=== PATIENT | female | born 2000 | race Caucasian/White ===

== ENCOUNTER 2024-08-16 13:59 | Outpatient (CLI) | payer BC | END 2024-08-16 14:00 | disposition home or self-care (01) | LOC: SCSMRI 13:59 | DX: M25.572 Pain in left ankle and joints of left foot (principal); M72.2 Plantar fascial fibromatosis; M76.822 Posterior tibial tendinitis, left leg ==

== ENCOUNTER 2024-09-06 23:04 | Emergency (ER) | payer BC ==
[2024-09-07] MEDS ORDERED: Ipratropium/Albuterol 3 ML NEB ONE (00:03)
[2024-09-07] MEDS ORDERED: Albuterol 2.5 MG (3 mL) NEB ONE (00:03)
[2024-09-07] MEDS ORDERED: Albuterol 2.5 MG (0.5 mL) NEB ONE (00:03)
[2024-09-07] MEDS ORDERED: Dexamethasone 10 MG/ML VIAL ONE (00:37)
== END 2024-09-07 02:05 | disposition home or self-care (01) ==
LOC: ERS 23:04
DX: J45.901 Unspecified asthma with (acute) exacerbation (principal); R00.0 Tachycardia, unspecified
CPT/HCPCS: 71045; 93005; 94640; J1100; J7611; J7620

== ENCOUNTER 2024-11-28 01:58 | Emergency (ER) | payer BC, OTHER ==
[2024-11-28] MEDS ORDERED: Ipratropium/Albuterol 3 ML NEB ONE ×2 (02:06→02:12)
[2024-11-28] MEDS ORDERED: methylPREDNISolone Sod Succ/PF 125 MG/2 ML VIAL ONE (02:12)
[2024-11-28 02:23] LABS: #Basophils 0.03 10x3/uL (0.0-0.2); %Basophils 0.3 % (0.0-1.0); %Eosinophils 5.5 % (0.0-10.0); %Lymphocytes 32.3 % (21.0-51.0); %Monocytes 9.3 % (0.0-10.0); %Neutrophils 52.4 % (42.0-75.0); Hematocrit 38.6 % (36.0-47.0); Hemoglobin 12.8 g/dL (12.0-16.0); Mean Corpuscular HGB CONC 33.2 g/dL (32.0-36.0); Mean Corpuscular Hemoglobin 27.4 pg (27.0-31.0); Mean Corpuscular Volume 82.7 fL (78.0-98.0); Mean Platelet Volume 9.4 fL (7.4-10.4); Platelet Count 368 10x3/uL (130-400); RBC Distribution Width 14.3 % (11.5-14.5); Red Blood Cell (RBC) Count 4.67 mill/uL (4.20-5.40)
[2024-11-28 02:33] LABS: BHCG - Serum Negative (NEGATIVE); Pregs Control Background? CLEAR/WHITE (CLR/WHITE); Pregs Control Bar Appear? YES (CONTROL BAR)
[2024-11-28 02:37] LABS: ALT (SGPT) 14 U/L (8-55); AST (SGOT) 16 U/L (5-34); Albumin 3.9 g/dL (3.5-5.0); Alkaline Phosphatase 71 U/L (40-110); Anion Gap 12 mmol/L (10-20); BUN (Urea Nitrogen) 13 mg/dL (7.0-18.7); Bilirubin, Total 0.3 mg/dL (0.2-1.2); Calc. Creatinine Clearance 0 mL/min (70-130); Calcium 9.1 mg/dL (7.8-10.44); Carbon Dioxide 19 mmol/L (22-29); Chloride 111 mmol/L (98-107); Estimated GFR 99; Globulin 3.9 g/dL (2.4-3.5); Glucose 78 mg/dL (70-105); Potassium 4.2 mmol/L (3.5-5.1); Protein, Total 7.8 g/dL (6.0-8.3); Sodium 138 mmol/L (136-145)
[2024-11-28] MEDS ORDERED: Albuterol 2.5 MG (0.5 mL) NEB ONE (03:01)
== END 2024-11-28 04:23 | disposition home or self-care (01) ==
LOC: ERS 01:58
DX: J45.901 Unspecified asthma with (acute) exacerbation (principal); Z79.899 Other long term (current) drug therapy
CPT/HCPCS: 80053; 84703; 85025; 96374; J2919; J7611; J7620

== ENCOUNTER 2024-12-23 01:13 | Observation (INO) | payer OTHER ==
[2024-12-23 02:16] LABS: #Basophils Less than 0.03 10x3/uL (0.0-0.2); %Basophils 0.2 % (0.0-1.0); %Eosinophils 8.4 % (0.0-10.0); %Lymphocytes 34.8 % (21.0-51.0); %Monocytes 6.7 % (0.0-10.0); %Neutrophils 49.7 % (42.0-75.0); Hematocrit 36.8 % (36.0-47.0); Hemoglobin 11.7 g/dL (12.0-16.0); Mean Corpuscular HGB CONC 31.8 g/dL (32.0-36.0); Mean Platelet Volume 9.8 fL (7.4-10.4); Platelet Count 314 10x3/uL (130-400); Red Blood Cell (RBC) Count 4.33 mill/uL (4.20-5.40)
[2024-12-23] MEDS ORDERED: methylPREDNISolone Sod Succ/PF 125 MG/2 ML VIAL ONE (02:46)
[2024-12-23 02:52] LABS: ALT (SGPT) 13 U/L (Less than 34); Albumin 3.6 g/dL (3.1-4.5); Alkaline Phosphatase 62 U/L (40-110); Anion Gap 12 mmol/L (10-20); BUN (Urea Nitrogen) 14 mg/dL (7.0-18.7); Bilirubin, Total 0.2 mg/dL (0.3-1.2); Calc. Creatinine Clearance 0 mL/min (70-130); Calcium 8.7 mg/dL (7.8-10.44); Carbon Dioxide 21 mmol/L (22-29); Chloride 110 mmol/L (98-107); Estimated GFR 96; Globulin 3.5 g/dL (2.4-3.5); Glucose 123 mg/dL (70-105); Protein, Total 7.1 g/dL (6.0-8.3); Sodium 139 mmol/L (136-145)
[2024-12-23] MEDS ORDERED: Magnesium 2 GM/50 ML BAG (IN WATER) ONE (03:20)
[2024-12-23] MEDS ORDERED: Albuterol 2.5 MG (0.5 mL) NEB ONE (03:25)
[2024-12-23 03:26] LABS: Troponin I 0.012 ng/mL (< 0.028)
[2024-12-23 03:47] LABS: AST (SGOT) 22 U/L (11-34)
[2024-12-23] MEDS ORDERED: Calcium Carbonate 500 MG ChewTAB PO PRN (04:07)
[2024-12-23] MEDS ORDERED: Acetaminophen 325 MG TAB PO PRN (04:07)
[2024-12-23] MEDS ORDERED: Acetaminophen 650 MG Suppository PR PRN (04:07)
[2024-12-23] MEDS ORDERED: Ondansetron ODT 4 MG TAB PO PRN (04:07)
[2024-12-23 05:41] VITALS: BMI 45.2
[2024-12-23] MEDS: FLU (Fluarix Triv) TS24-25(6MOS UP)/PF 45 MCG/0.5 ML Syringe IM ONE (08:05)
[2024-12-23] MEDS: Famotidine 20 MG TAB PO SCH (08:06)
[2024-12-23] MEDS: Ipratropium/Albuterol 3 ML NEB NEB PRN (08:54)
[2024-12-23] MEDS: Mometasone 100 MCG HFA INHALER (RT USE) INH SCH (13:37)
[2024-12-23] MEDS: methylPREDNISolone Sod Succ 40 MG VIAL IVP SCH (17:52)
[2024-12-23] MEDS: Montelukast Sodium 10 mg Tablet PO SCH (21:55)
[2024-12-24 10:45] LABS: #Basophils Less than 0.03 10x3/uL (0.0-0.2); #Eosinophils Less than 0.03 10x3/uL (0.0-0.7); %Lymphocytes 12.4 % (21.0-51.0); %Monocytes 2.7 % (0.0-10.0); %Neutrophils 84.4 % (42.0-75.0); Hematocrit 37.7 % (36.0-47.0); Hemoglobin 11.9 g/dL (12.0-16.0); Mean Corpuscular HGB CONC 31.6 g/dL (32.0-36.0); Mean Corpuscular Hemoglobin 26.7 pg (27.0-31.0); Mean Corpuscular Volume 84.7 fL (78.0-98.0); Platelet Count 341 10x3/uL (130-400); Red Blood Cell (RBC) Count 4.45 mill/uL (4.20-5.40)
[2024-12-24 11:02] VITALS: BP 131/85; TEMP 97.7
[2024-12-24 11:10] LABS: Anion Gap 12 mmol/L (10-20); BUN (Urea Nitrogen) 10 mg/dL (7.0-18.7); Calc. Creatinine Clearance 297 mL/min (70-130); Calcium 8.8 mg/dL (7.8-10.44); Carbon Dioxide 20 mmol/L (22-29); Chloride 111 mmol/L (98-107); Estimated GFR 117; Glucose 124 mg/dL (70-105); Potassium 3.8 mmol/L (3.5-5.1); Sodium 139 mmol/L (136-145)
== END 2024-12-24 12:16 | disposition home or self-care (01) ==
LOC: ERS 01:13 → T4-A 05:32
PROVIDERS: ADMIT Student in an Organized Health Care Education/Training Program; ATTEND Internal Medicine
DX: J45.901 Unspecified asthma with (acute) exacerbation (principal); J96.01 Acute respiratory failure with hypoxia; F41.9 Anxiety disorder, unspecified; F32.A Depression, unspecified; Z79.51 Long term (current) use of inhaled steroids; Z79.899 Other long term (current) drug therapy
CPT/HCPCS: 36415; 71045; 80048; 80053; 83880; 84484; 85025; 85379; 87428; 93005; 94640; 96374; 96375; 96376; G0378; J2919; J3475; J7611; J7620